=== PATIENT | male | born 1965 | race Asian ===

== ENCOUNTER 2019-05-05 13:43 | Emergency (ER) | payer OTHER ==
--- OUTSIDE RECORDS SUMMARY | 2019-05-05 13:46 | XMS REPORT ---
:1965 Author Organization eClinicalWorks Care Team Providers Name Role Phone Angeal Link Provider Role Unavailable Allergies, Adverse Reactions, Alerts Substance Reaction Event Type N.K.D.A. Info Not Available Non Drug Allergy Problems Problem Type Condition Code Onset Dates Condition Status Assessment Person consulting for explanation of Z71.2 Active examination or test findings Medications No Known Medications Results No Known Results Summary Purpose eClinicalWorks Submission
--- OUTSIDE RECORDS SUMMARY | 2019-05-05 13:46 | XMS REPORT ---
:1965 Author Organization [employer] Care Team Providers Name Role Phone Angela Link Provider Role Unavailable Allergies, Adverse Reactions, Alerts Substance Reaction Event Type N.K.D.A. Info Not Available Non Drug Allergy Problems Problem Type Condition Code Onset Dates Condition Status Assessment Encounter for general adult medical Z00.00 Active examination without abnormal findings Medications No Known Medications Results No Known Results Summary Purpose eClinicalWorks Submission
[2019-05-05] MEDS ORDERED: NA CHLORIDE 0.9% 1,000 ML ONE (16:26)
[2019-05-05] MEDS ORDERED: ONDANSETRON 4 MG/2 ML VIAL ONE (16:26)
[2019-05-05 16:44] LABS: Protime INR 1.05
[2019-05-05 17:20] LABS: ALT/SGPT 55 U/L (12-78); AST/SGOT 54 U/L (15-37); Albumin 3.6 g/dL (3.4-5.0); Alkaline Phosphatase 46 U/L (45-117); BUN Blood Urea Nitrogen 18 mg/dL (7-18); Bicarbonate 29 mmol/L (21-32); Bilirubin Direct 0.2 mg/dL (0-0.2); Bilirubin Total 0.3 mg/dL (0.2-1.0); Glucose Level 112 mg/dL (74-106); Magnesium 2.3 mg/dL (1.8-2.4); NT PRO-BNP 11 pg/mL (<125); Potassium 3.9 mmol/L (3.5-5.1); Sodium Level 132 mmol/L (136-145); Troponin (Emerg Dept Use Only) < 0.02 ng/mL (0.0-0.045)
--- NOTE | 2019-05-05 17:39 | RAD REPORT ---
EXAM DESCRIPTION: Del Single View05/05/2019 5:01 pm CLINICAL HISTORY: cough COMPARISON: none FINDINGS: The lungs appear clear of acute infiltrate. The heart is normal size IMPRESSION: No acute abnormalities displayed
[2019-05-05 17:53] LABS: Absolute Lymphocytes (CBC) 1.4 K/uL (0.7-4.9); Basophils % 0.5 % (0-1.3); Hematocrit 46.8 % (39.6-49.0); Lymphocytes % 24.4 % (15.3-44.8); MPV 9.5 fL (7.6-11.3); RBC Red Blood Cell Count 5.37 M/uL (4.33-5.43)
--- NOTE | 2019-05-05 18:34 | EDPHYS ---
Physician Documentation [facility] Name: Rayshawn Bhatt Age: 53 yrs Sex: Male : 1965 Arrival Date: 05/05/2019 Time: 13:46 Bed 14 Private MD: ED Physician Bishop Bates HPI: 05/04 15:51 This 53 yrs old Male presents to ER via Ambulatory with complaints of Weakness. prachi Historical: - Allergies: 14:24 No Known Allergies; ss - Immunization history:: Adult Immunizations up to date. - Social history:: Smoking status: Patient denies any tobacco usage or history of. ROS: 15:51 Constitutional: Negative for fever, chills, and weight loss, Eyes: Negative for injury, prachi pain, redness, and discharge, ENT: Negative for injury, pain, and discharge, Neck: Negative for injury, pain, and swelling, Cardiovascular: Negative for chest pain, palpitations, and edema, Abdomen/GI: Negative for abdominal pain, nausea, vomiting, diarrhea, and constipation, Back: Negative for injury and pain, : Negative for injury, bleeding, discharge, and swelling, MS/Extremity: Negative for injury and deformity, Skin: Negative for injury, rash, and discoloration, Psych: Negative for depression, anxiety, suicide ideation, homicidal ideation, and hallucinations, Allergy/Immunology: Negative for hives, rash, and allergies, Endocrine: Negative for neck swelling, polydipsia, polyuria, polyphagia, and marked weight changes, Hematologic/Lymphatic: Negative for swollen nodes, abnormal bleeding, and unusual bruising. 15:51 Respiratory: Positive for cough. 15:51 Neuro: Positive for weakness. Exam: 15:52 Constitutional: This is a well developed, well nourished patient who is awake, alert, prachi and in no acute distress. Head/Face: Normocephalic, atraumatic. Eyes: Pupils equal round and reactive to light, extra-ocular motions intact. Lids and lashes normal. Conjunctiva and sclera are non-icteric and not injected. Cornea within normal limits. Periorbital areas with no swelling, redness, or edema. ENT: Nares patent. No nasal discharge, no septal abnormalities noted. Tympanic membranes are normal and external auditory canals are clear. Oropharynx with no redness, swelling, or masses, exudates, or evidence of obstruction, uvula midline. Mucous membranes moist. Neck: Trachea midline, no thyromegaly or masses palpated, and no cervical lymphadenopathy. Supple, full range of motion without nuchal rigidity, or vertebral point tenderness. No Meningismus. Chest/axilla: Normal chest wall appearance and motion. Nontender with no deformity. No lesions are appreciated. Cardiovascular: Regular rate and rhythm with a normal S1 and S2. No gallops, murmurs, or rubs. Normal PMI, no JVD. No pulse deficits. Respiratory: Lungs have equal breath sounds bilaterally, clear to auscultation and percussion. No rales, rhonchi or wheezes noted. No increased work of breathing, no retractions or nasal flaring. Abdomen/GI: Soft, non-tender, with normal bowel sounds. No distension or tympany. No guarding or rebound. No evidence of tenderness throughout. Back: No spinal tenderness. No costovertebral tenderness. Full range of motion. Male : Normal genitalia with no discharge or lesions. Skin: Warm, dry with normal turgor. Normal color with no rashes, no lesions, and no evidence of cellulitis. MS/ Extremity: Pulses equal, no cyanosis. Neurovascular intact. Full, normal range of motion. Neuro: Awake and alert, GCS 15, oriented to person, place, time, and situation. Cranial nerves II-XII grossly intact. Motor strength 5/5 in all extremities. Sensory grossly intact. Cerebellar exam normal. Normal gait. Psych: Awake, alert, with orientation to person, place and time. Behavior, mood, and affect are within normal limits. Vital Signs: 14:20 BP 108 / 88; Pulse 95; Resp 16; Temp 98.4(TE); Pulse Ox 98% on R/A; Weight 77.11 kg; ss Height 5 ft. 8 in. (172.72 cm); Pain 0/10; 15:45 BP 118 / 78; Pulse 87; Resp 18; Pulse Ox 99% on R/A; ph 17:00 BP 122 / 78; Pulse 85; Resp 18; Pulse Ox 99% on R/A; ph 18:15 BP 120 / 80; Pulse 81; Resp 18; Temp 97.8; Pulse Ox 100% ; ph 14:20 Body Mass Index 25.85 (77.11 kg, 172.72 cm) MDM: 14:27 Patient medically screened. [facility] 15:53 Data reviewed: vital signs, nurses notes, lab test result(s), EKG, radiologic studies, prachi plain films. 05/04 15:49 Order name: Basic Metabolic Panel; Complete Time: 17:23 [facility] 05/04 15:49 Order name: CBC with Diff; Complete Time: 17:59 [facility] 05/04 15:49 Order name: LFT's; Complete Time: 17:23 [facility] 05/04 15:49 Order name: Magnesium; Complete Time: 17:23 [facility] 05/04 15:49 Order name: NT PRO-BNP; Complete Time: 17:23 [facility] 05/04 15:49 Order name: PT-INR; Complete Time: 17:39 [facility] 05/04 15:49 Order name: Troponin (emerg Dept Use Only); Complete Time: 17:23 [facility] 05/04 15:49 Order name: XRAY Chest (1 view); Complete Time: 17:59 [facility] 05/04 15:51 Order name: Urine Culture [facility] 05/04 15:53 Order name: Lipase; Complete Time: 17:23 [facility] 05/04 16:32 Order name: Urine Dipstick--Ancillary (enter results) 05/04 17:24 Order name: US Abdomen Limited [facility] 05/04 15:49 Order name: EKG; Complete Time: 15:50 [facility] 05/04 15:49 Order name: Cardiac monitoring; Complete Time: 15:53 [facility] 05/04 15:49 Order name: EKG - Nurse/Tech; Complete Time: 17:35 [facility] 05/04 15:49 Order name: IV Saline Lock; Complete Time: 17:35 [facility] 05/04 15:49 Order name: Labs collected and sent; Complete Time: 17:35 [facility] 05/04 15:49 Order name: O2 Per Protocol; Complete Time: 15:53 [facility] 05/04 15:49 Order name: O2 Sat Monitoring; Complete Time: 15:53 [facility] 05/04 15:49 Order name: Urine Dipstick-Ancillary (obtain specimen); Complete Time: 17:35 [facility] 05/04 18:32 Order name: PO challenge; Complete Time: 18:39 [facility] Administered Medications: 16:41 Drug: Zofran (Ondansetron) 4 mg Route: IVP; Site: right antecubital; ph 17:00 Follow up: Response: No adverse reaction ph 16:42 Drug: NS 0.9% 1000 ml Route: IV; Rate: 1 bolus; Site: right antecubital; ph 17:45 Follow up: Response: No adverse reaction; IV Status: Completed infusion ph 17:45 Drug: NS 0.9% 500 ml Route: IV; Rate: bolus; Site: right antecubital; ph 18:30 Follow up: Response: No adverse reaction; IV Status: Completed infusion ph Disposition: 05/05/19 18:32 Discharged to Home. Impression: Weakness, Nausea. - Condition is Stable. - Discharge Instructions: Nausea and Vomiting, Adult, Nausea, Adult, Weakness, Nausea and Vomiting, Adult, Ilzo-pm-Itss, Weakness, Jens-kv-Pswl, Nausea, Adult, Slkk-jd-Ovia. - Prescriptions for Zofran 4 mg Oral Tablet - take 1 tablet by ORAL route every 12 hours As needed; 20 tablet. - Medication Reconciliation Form, Thank You Letter, Antibiotic Education, Prescription Opioid Use form. - Follow up: Private Physician; When: 2 - 3 days; Reason: Recheck today's complaints, Continuance of care, Re-evaluation by your physician. - Problem is new. - Symptoms have improved. Signatures: Dispatcher [employer] EDMS Bishop Bates MD MD cha Smirch, Shelby, RN RN Marybeth Mitchell RN RN Gaurav Vera RN RN mg2 Corrections: (The following items were deleted from the chart) 19:21 18:32 05/05/2019 18:32 Discharged to Home. Impression: Weakness; Nausea. Condition is mg2 Stable. Discharge Instructions: Nausea and Vomiting, Adult, Nausea, Adult, Weakness, Nausea and Vomiting, Adult, Opui-hh-Pdvx, Weakness, Nnuv-zv-Nzxx, Nausea, Adult, Mhcm-ec-Uchx. Prescriptions for Zofran 4 mg Oral Tablet - take 1 tablet by ORAL route every 12 hours As needed; 20 tablet. and Forms are Medication Reconciliation Form, Thank You Letter, Antibiotic Education, Prescription Opioid Use. Follow up: Private Physician; When: 2 - 3 days; Reason: Recheck today's complaints, Continuance of care, Re-evaluation by your physician. Problem is new. Symptoms have improved. prachi
--- NOTE | 2019-05-05 18:34 | ER ---
Nurse's Notes [facility] Name: Rayshawn Bhatt Age: 53 yrs Sex: Male : 1965 Arrival Date: 05/05/2019 Time: 13:46 Bed 14 Private MD: Diagnosis: Weakness;Nausea Presentation: 05/04 14:20 Chief complaint: Patient states: Fatigue, nausea, diarrhea and decreased appetite x 4-5 ss days. Pt was diagnosed with Flu A 3 days ago and given Tamiflu. Pt quit taking Tamiflu yesterday because he felt as if it was too strong. Pt denies having fever, cough or runny nose like he did when he was diagnosed with the flu. Coronavirus screen: The patient has NOT traveled to a country currently being monitored by the [facility] within the last 14 days. Proceed with normal triage procedures. Ebola Screen: Patient denies exposure to infectious person. Patient denies travel to an Ebola-affected area in the 21 days before illness onset. Initial Sepsis Screen: Does the patient meet any 2 criteria? HR > 90 bpm. Does the patient have a suspected source of infection? No. Patient's initial sepsis screen is negative. Risk Assessment: Do you want to hurt yourself or someone else? Patient reports no desire to harm self or others. 14:20 Method Of Arrival: Ambulatory ss 14:20 Acuity: IFTIKHAR 3 ss Historical: - Allergies: 14:24 No Known Allergies; ss - Immunization history:: Adult Immunizations up to date. - Social history:: Smoking status: Patient denies any tobacco usage or history of. Screenin:50 Abuse screen: Denies threats or abuse. Denies injuries from another. Nutritional ph screening: No deficits noted. Tuberculosis screening: No symptoms or risk factors identified. Fall Risk None identified. Assessment: 14:49 General: Appears in no apparent distress. comfortable, slender, well groomed, Behavior ph is calm, cooperative, appropriate for age. Pain: Denies pain. Neuro: Level of Consciousness is awake, alert, obeys commands, Oriented to person, place, time, situation. Neuro: Reports weakness. 14:49 Cardiovascular: Reports fatigue, lightheadedness, Denies chest pain, shortness of ph breath, syncope. Respiratory: Airway is patent Respiratory effort is even, unlabored, Respiratory pattern is regular, symmetrical. GI: Reports diarrhea, nausea, vomiting. Derm: Skin is intact, is healthy with good turgor, Skin is pink, warm \T\ dry. Musculoskeletal: Circulation, motion, and sensation intact. Range of motion: intact in all extremities. 16:00 Reassessment: Patient appears in no apparent distress at this time. Patient and/or ph family updated on plan of care and expected duration. Pain level reassessed. Patient is alert, oriented x 3, equal unlabored respirations, skin warm/dry/pink. 17:00 Reassessment: Patient appears in no apparent distress at this time. Patient and/or ph family updated on plan of care and expected duration. Pain level reassessed. Patient is alert, oriented x 3, equal unlabored respirations, skin warm/dry/pink. 18:25 Reassessment: Patient appears in no apparent distress at this time. Patient and/or ph family updated on plan of care and expected duration. Pain level reassessed. Patient is alert, oriented x 3, equal unlabored respirations, skin warm/dry/pink. Vital Signs: 14:20 BP 108 / 88; Pulse 95; Resp 16; Temp 98.4(TE); Pulse Ox 98% on R/A; Weight 77.11 kg; ss Height 5 ft. 8 in. (172.72 cm); Pain 0/10; 15:45 BP 118 / 78; Pulse 87; Resp 18; Pulse Ox 99% on R/A; ph 17:00 BP 122 / 78; Pulse 85; Resp 18; Pulse Ox 99% on R/A; ph 18:15 BP 120 / 80; Pulse 81; Resp 18; Temp 97.8; Pulse Ox 100% ; ph 14:20 Body Mass Index 25.85 (77.11 kg, 172.72 cm) ED Course: 13:46 Patient arrived in ED. rg4 14:24 Triage completed. 14:24 Arm band placed on left wrist. EKG completed in triage. Results shown to MD. EKG ss completed in triage. Results shown to MD. 14:27 Bishop Bates MD is Attending Physician. [facility] 14:48 Marybeth Mitchell, STEFANIE is Primary Nurse. ph 14:51 Patient has correct armband on for positive identification. Bed in low position. Call ph light in reach. Side rails up X 1. Pulse ox on. NIBP on. Door closed. Noise minimized. Warm blanket given. 16:15 Urine collected: clean catch specimen, clear. dh3 16:18 Initial lab(s) drawn, by co, sent to lab. Inserted saline lock: 20 gauge in right 3 antecubital area, using aseptic technique. Blood collected. 17:04 XRAY Chest (1 view) In Process Unspecified. EDMS 18:06 EKG done, by ED staff, reviewed by Bishop Bates MD. dh3 18:15 US Abdomen Limited In Process Unspecified. EDMS 18:43 No provider procedures requiring assistance completed. IV discontinued, intact, ph bleeding controlled, No redness/swelling at site. Pressure dressing applied. Administered Medications: 16:41 Drug: Zofran (Ondansetron) 4 mg Route: IVP; Site: right antecubital; ph 17:00 Follow up: Response: No adverse reaction ph 16:42 Drug: NS 0.9% 1000 ml Route: IV; Rate: 1 bolus; Site: right antecubital; ph 17:45 Follow up: Response: No adverse reaction; IV Status: Completed infusion ph 17:45 Drug: NS 0.9% 500 ml Route: IV; Rate: bolus; Site: right antecubital; ph 18:30 Follow up: Response: No adverse reaction; IV Status: Completed infusion ph Outcome: 18:32 Discharge ordered by . prachi 19:21 Patient left the ED. mg2 19:21 Discharged to home ambulatory, with family. ph 19:21 Condition: good 19:21 Discharge instructions given to patient, family, Instructed on discharge instructions, follow up and referral plans. medication usage, Demonstrated understanding of instructions, follow-up care, medications, Prescriptions given X 1. Signatures: Dispatcher [employer] Bishop Jimenez MD MD cha Smirch, Shelby, RN RN ss Marybeth Mitchell RN RN Tawanna Lazcano [facility] Gaurav Vera RN RN mg2
[2019-05-05 19:31] VITALS: BP 120/80; TEMP 97.8; O2SAT 100
[2019-05-05 20:47] LABS: Urine Blood 2+ (NEG); Urine Glucose NEGATIVE (NEG); Urine Protein 2+ (NEG); Urine Specific Gravity >1.030 (1.005-1.030); Urine pH 5.5 (5.0-7.0)
--- NOTE | 2019-05-06 09:40 | RAD REPORT ---
EXAM DESCRIPTION: US - Abdominal Ultrasound Limited 05/05/2019 CLINICAL HISTORY: Not given. COMPARISON: None. TECHNIQUE: Gallbladder Ultrasound FINDINGS: A gallstone is not seen. The gallbladder wall is not thickened. The biliary tree is normal in caliber. IMPRESSION: Unremarkable gallbladder ultrasound.
--- NOTE | 2019-05-06 12:14 | EKG ---
Test Date: 2019-05-05 Test Time: 17:05:10 Outboard Motor Assembler: RON MEASUREMENT RESULTS: Intervals: Rate: 65 [place]: 148 QRSD: 86 QT: 408 QTc: 424 [place]: P: 13 [place]: 148 QRS: 54 T: 65 INTERPRETIVE STATEMENTS: Normal sinus rhythm Normal ECG No previous ECG available for comparison Electronically Signed On 05-06-19 12:13:29 CDT by Jose Kline
== END 2019-05-05 19:21 | disposition home or self-care (01) ==
LOC: ER 13:43
DX: R53.1 Weakness (principal); R11.0 Nausea
CPT/HCPCS: 96361; 93005; 87088; 85025; 80048; 36415; 83735; 85610; 80076; 81003; 84484; 83690; 83880; 71045; 76705; 96374; 99284; J7030; J2405; 87086